=== PATIENT | male | born 1990 | race Caucasian/White ===

== ENCOUNTER 2020-01-03 18:50 | Emergency (ER) | payer OTHER, SELFPAY ==
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
[2020-01-03 18:52] VITALS: BP 165/90; PULSE 112; RESP 14; TEMP 36.3; O2SAT 100
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
--- NOTE | 2020-01-03 19:30 | PC.NURSE ---
Patient being taken to radiology.
--- NOTE | 2020-01-03 19:59 | PC.NURSE ---
Patient's wound cleansed with NS and syringe.
[2020-01-03] MEDS: LIDOCAINE HCL 1% LOCAL INJ 20 ML VIAL INFILTRATE (20:48)
--- NOTE | 2020-01-03 21:19 | PC.NURSE ---
ISAIAS Bernabe in room with patient at this time.
[2020-01-03 22:53] VITALS: BP 140/79; PULSE 93; RESP 18; TEMP 36.6; O2SAT 100
== END 2020-01-03 22:54 | disposition home or self-care (01) ==
PROVIDERS: Emergency Provider Emergency Medicine
DX: S01.21XA Laceration without foreign body of nose, initial encounter (principal); S02.2XXA Fracture of nasal bones, initial encounter for closed fracture; V86.59XA Driver of other special all-terrain or other off-road motor vehicle injured in nontraffic accident, initial encounter
CPT/HCPCS: 12051; 70486; 99284